=== PATIENT | male | born 1980 | race Caucasian/White ===

== ENCOUNTER 2017-01-21 10:57 | Emergency (ER) | payer MEDICAID ==
[2017-01-21 11:10] VITALS: BP 139/87
== END 2017-01-21 12:26 | disposition home or self-care (01) ==
LOC: ED 10:57
DX: S61.411A Laceration without foreign body of right hand, initial encounter (principal); S01.81XA Laceration without foreign body of other part of head, initial encounter; X58.XXXA Exposure to other specified factors, initial encounter; Y93.89 Activity, other specified; Y92.89 Other specified places as the place of occurrence of the external cause; Y99.8 Other external cause status
CPT/HCPCS: 90715